=== PATIENT | female | born 1965 | race Caucasian/White ===

== ENCOUNTER 2025-02-07 11:17 | Outpatient (CLI) | payer MEDICAID ==
[2025-02-07] MEDS ORDERED: iohexol 300mg/ml 100ml inj. ONE (12:39)
--- NOTE | 2025-02-07 13:52 | RADIOLOGY REPORT ---
CLINICAL HISTORY: Migraine. TECHNIQUE: CT Head exam was performed with and without intravenous contrast. 100 mL of Omnipaque 300 was administered intravenously. This exam was performed according to our departmental dose optimization program. Up-to-date CT equipment and radiation dose reduction techniques are utilized as appropriate. CTDI 58 DLP 2147 COMPARISON: None FINDINGS: There is no evidence for acute intracranial hemorrhage, acute ischemic changes, mass, mass effect, or extra-axial fluid collection. There is no hydrocephalus or midline shift. There is no effacement of the cerebral sulci and basal subarachnoid cisterns. The veras-white matter differentiation is well maintained. The imaged paranasal sinuses are clear. There is no abnormal enhancement. IMPRESSION: No acute intracranial abnormality seen.
== END 2025-02-07 23:59 | disposition home or self-care (01) ==
LOC: RAD 11:17
PROVIDERS: ATTEND Physician Assistant
DX: R56.9 Unspecified convulsions (principal); G25.5 Other chorea; F80.81 Childhood onset fluency disorder; G43.809 Other migraine, not intractable, without status migrainosus
CPT/HCPCS: 70470; Q9967

== ENCOUNTER 2025-02-14 09:33 | Outpatient (CLI) | payer MEDICAID ==
--- NOTE | 2025-02-14 22:07 | [facility] CONSULT REPORT ---
[facility] Procedure Note [facility] Procedure Note Consult [facility] Note # Demographics Type of EEG Read: - Routine EEG - video Patient Location: Outpatient First Name: Chrissy Last Name: Jerrod Date of : 1965 Age: 60 Gender: Female Facility: [facility] Time of Initial Page (): 02/14/2025 10:38 First Contact with Site (): 02/14/2025 11:10 # EEG Interpretation Start Time of EEG Read (): 02/14/2025 10:11 Stop Time of EEG Read (): 02/14/2025 10:34 Duration: 0h 23m Technical Details: - This study was recorded using the [employer] EEG software - The EEG electrodes were placed using the standard [employer] 10-20 system of electrode placement. Video and an accessory EKG lead were used during the course of this study. Indication: - altered mental status # Description Photic Stimulation: NOT Performed Hyperventilation: NOT performed Symmetry: symmetric Posterior Dominant Rhythm: - present, attenuates on eye opening 12 hertz Predominant Frequencies: posterior dominant alpha (8-12 Hz) Amplitude: normal Reactivity: yes Variability: yes Continuity: continuous EKG: NSR # Abnormalities Epileptiform Abnormalities: - NOT present Focal Slowing: no Seizure: - NOT present # Impression Impression: normal # Clinical Correlation Clinical Correlation: A normal EEG does not exclude nor support the diagnosis of epilepsy. # Demographics First Name: Chrissy Last Name: Jerrod Facility: [facility] PAMELA GONZÁLES MD Feb 14, 2025 22:07
== END 2025-02-14 23:59 | disposition home or self-care (01) ==
LOC: RAD 09:33
PROVIDERS: ATTEND Physician Assistant
DX: R56.9 Unspecified convulsions (principal)
CPT/HCPCS: 95816